=== PATIENT | female | born 1985 | race African-American/Black ===

== ENCOUNTER 2016-10-24 22:32 | Emergency (ER) | payer MEDICAID ==
[2016-10-25] MEDS ORDERED: LIDOCAINE 1%/EPINEPHRINE INJ 20 ML VIAL INJ ONE (01:30)
--- NOTE | 2016-10-25 02:12 | ER Document Report ---
ED General - General Chief Complaint: Facial Injury Stated Complaint: FALL/FACIAL INJURY Notes: Patient is a 31-year-old female without past medical history who presents after having a mechanical fall just prior to arrival. States that she tripped and fell striking her face and forehead on the ground. She did sustain a laceration over her left lip. A constant, throbbing, dull pain to the affected area. Touching the area worsens the pain. Nothing improves the pain. Denies history of similar injury in the past. States her tetanus is already up-to- date. Denies any weakness, numbness, loss of consciousness, vomiting, or altered mental status. She has not seen her primary care physician regarding today's concerns. TRAVEL OUTSIDE OF THE [place] IN LAST 30 DAYS: No - Related Data Allergies/Adverse Reactions: No Known Allergies Allergy (Verified 05/04/14 00:54) Past Medical History - General Information source: Patient - Social History Smoking Status: Current Every Day Smoker Chew tobacco use (# tins/day): No Frequency of alcohol use: None Drug Abuse: None Lives with: Spouse/Significant other Family History: CAD, DM, Hypertension Patient has suicidal ideation: No Patient has homicidal ideation: No Pulmonary Medical History: Reports: Hx Asthma Renal/ Medical History: Denies: Hx Peritoneal Dialysis Past Surgical History: Reports: Hx Section - Immunizations Immunizations up to date: Yes Hx Diphtheria, Pertussis, Tetanus Vaccination: Yes Hx Pneumococcal Vaccination: 05/07/14 Review of Systems - Review of Systems Notes: Constitutional: Negative for fever. Eyes: Negative for visual changes. ENT: Positive for facial injury Cardiovascular: Negative for chest injury. Respiratory: Negative for shortness of breath. Gastrointestinal: Negative for abdominal injury. Genitourinary: Negative for genital injury Musculoskeletal: Negative for back injury. Skin: Negative for laceration/abrasions. Neurological: Positive for head injury. Physical Exam - Vital signs Vitals: Temp Pulse Resp BP Pulse Ox 98 F 82 18 138/94 H 99 10/24/16 22:42 10/24/16 22:42 10/24/16 22:42 10/24/16 22:42 10/24/16 22:42 Interpretation: Normal Notes: PHYSICAL EXAMINATION: GENERAL: Well-appearing, no acute distress. HEAD: Atraumatic, normocephalic. EYES: Pupils equal round and reactive to light, extraocular movements intact, sclera anicteric, conjunctiva are normal. ENT: nares patent, contused, macerated flap type laceration of the left upper lip No hemotympanum, no Song's sign, no raccoon eyes. NECK: No midline cervical spine tenderness. Patient able to move their head to 45 bilaterally without any discomfort. LUNGS: Breath sounds clear to auscultation bilaterally and equal. No wheezes rales or rhonchi. HEART: Regular rate and rhythm without murmurs. CHEST WALL: No ecchymosis over the chest wall. ABDOMEN: Soft, nontender, normoactive bowel sounds. No guarding, no rebound. EXTREMITIES: Normal range of motion, no pitting or edema. No long bone deformities. NEUROLOGICAL: Moves all extremities spontaneously and on command PSYCH: Normal mood, normal affect. SKIN: Warm, Dry, normal turgor, lip laceration as above Course - Re-evaluation Re-evalutation: 10/25/16 03:51 Patient presents with a left upper lip laceration sustained after a mechanical fall. No focal neurologic deficits on exam, no evidence of basilar skull fracture on exam without evidence of hemotympanum, raccoon eyes, or periauricular hematoma. No papilledema. Patient is not on anticoagulation. GCS is 15. No loss of consciousness. No episodes of vomiting. Patient is therefore negative via [place] head CT criteria and CT imaging will not be obtained at this time. Laceration repaired at the bedside. No evidence of dental injury. At this time will discharge with return precautions and follow- up recommendations. Verbal discharge instructions given a the bedside and opportunity for questions given. Medication warnings reviewed. Patient is in agreement with this plan and has verbalized understanding of return precautions and the need for primary care follow-up in the next 24-72 hours. - Vital Signs Vital signs: Temp Pulse Resp BP Pulse Ox 98 F 71 18 133/79 H 100 10/24/16 22:42 10/25/16 02:22 10/25/16 02:22 10/25/16 02:22 10/25/16 02:22 Procedures - Laceration/Wound Repair Face Wound length (cm): 2 Wound's Depth, Shape: Irregular, Contused tissue Laceration pre-procedure: Sterile PPE donned Anesthetic type: 1% Lidocaine w/epi Volume Anesthetic (mLs): 1 Wound explored: Clean Irrigated w/ Saline (mLs): 200 Wound Debrided: Moderate Wound Repaired With: Sutures Suture Size/Type: 5:0, Nylon Number of Sutures: 7 Layer Closure?: No Post-procedure wound care: Sterile dressing applied Post-procedure NV exam normal: Yes Complications: No Notes: 10/25/16 03:51 Complex lip laceration repair requiring approximation of contused, irregular laceration tissue. Total procedure time 30 minutes Discharge - Discharge Clinical Impression: Lip laceration Qualifiers: Encounter type: initial encounter Qualified Code(s): S01.511A - Laceration without foreign body of lip, initial encounter Head trauma Qualifiers: Encounter type: initial encounter Qualified Code(s): S09.90XA - Unspecified injury of head, initial encounter Condition: Good Disposition: HOME, SELF-CARE Additional Instructions: Please return to your primary doctor, the ED, or an urgent care in 5-7 days for suture removal. Return immediately if you develop spreading redness around the wound, pus from the wound, worsening pain, or a fever of >100.4. Keep the area clean and dry. Wash gently with soap and water twice daily and cover with antibiotic ointment. Referrals: CHRISTOPHER AMIN MD [Primary Care Provider] - Follow up as needed
[2016-10-25 02:41] VITALS: BP 133/79
== END 2016-10-25 02:22 | disposition home or self-care (01) ==
LOC: ER 22:32
PROC: 0CQ0XZZ Repair Upper Lip, External Approach (ICD-10-PCS; principal; 2016-10-24)
DX: S01.511A Laceration without foreign body of lip, initial encounter (principal); W19.XXXA Unspecified fall, initial encounter; Y93.01 Activity, walking, marching and hiking; Y92.480 Sidewalk as the place of occurrence of the external cause; F17.200 Nicotine dependence, unspecified, uncomplicated; J45.909 Unspecified asthma, uncomplicated
CPT/HCPCS: 12011; 99282; J3490

== ENCOUNTER → 2017-01-23 | Outpatient (CLI) | payer MEDICAID | LOC: WI 13:52 | PROVIDERS: ATTEND Obstetrics & Gynecology | DX: N63 Unspecified lump in breast (principal) | CPT/HCPCS: 76641 ==

== ENCOUNTER 2017-06-13 06:31 | Outpatient (CLI) | payer MEDICAID ==
[2017-06-13 07:59] LABS: APPEARANCE,URINE CLOUDY; BILIRUBIN,URINE NEGATIVE (NEGATIVE); GLUCOSE, URINE NEGATIVE (NEGATIVE); KETONES,URINE NEGATIVE (NEGATIVE); LEUKOCYTE ESTERASE,URINE SMALL (NEGATIVE); NITRITE,URINE NEGATIVE (NEGATIVE); PROTEIN,URINE 30 mg/dL (NEGATIVE); URINE SPECIFIC GRAVITY 1.014; UROBILINOGEN,URINE NEGATIVE mg/dL (<2.0)
[2017-06-13 08:36] LABS: URINE BARBITURATES SCREEN NEGATIVE; URINE METHADONE SCREEN NEGATIVE; URINE OPIATES LOW NEGATIVE; URINE PHENCYCLIDINE SCREEN NEGATIVE
--- NOTE | 2017-06-13 08:36 | Non Stress Test Report ---
Non Stress Test Datetime Report Generated by CPN: 06/13/2017 08:36 DEMOGRAPHIC Test Number: 1 EGA NST: 38.1 INDICATION Indication for Study: Ordered by Provider MONITORING Monitor Explained: Monitor Explained; Test Explained; Patient Verbalized Understanding Time on Monitor: 06/13/2017 06:47 Time off Monitor: 06/13/2017 08:18 NST Duration: 91 NST INTERVENTIONS NST Interventions: PO Hydration; IV Fluids Physician Notified NST: LANIER BABY A: [id number] BABY A Movement : Present Contraction Frequency : 14 FHR Baseline : 140 Accelerations : 15X15 Variability : Moderate 6-25bpm NST Review: Meets Criteria for Reactive NST NST Review and Verified By : Elissa Fonsecaolamo NST Results: Reactive NST COMMENTS NST Comments: One area of deceleration of heart rate to 100 x90 secconds with spont return to baseline and reactive strip thereafter NST REPORT Report Trigger: Send Report
== END 2017-06-13 08:37 | disposition home or self-care (01) ==
LOC: LC 06:31
PROVIDERS: ATTEND Specialist
PROC: 4A1HXCZ Monitoring of Products of Conception, Cardiac Rate, External Approach (ICD-10-PCS; principal; 2017-06-13)
DX: O76 Abnormality in fetal heart rate and rhythm complicating labor and delivery (principal); O47.1 False labor at or after 37 completed weeks of gestation; Z3A.38 38 weeks gestation of pregnancy
CPT/HCPCS: 59025; 80307; 81005

== ENCOUNTER 2017-06-17 12:58 | Inpatient (IN) | payer MEDICAID ==
[2017-06-17 12:35] LABS: ABSOLUTE LYMPHOCYTES (AUTO) 2.7 10^3/uL (0.5-4.7); ABSOLUTE MONOCYTES (AUTO) 0.5 10^3/uL (0.1-1.4); ABSOLUTE NEUT (AUTO) 5.4 10^3/uL (1.7-8.2); BASOPHILS % (AUTO) 0.2 % (0-2); EOSINOPHILS % (AUTO) 0.3 % (0-6); LYMPHOCYTES % (AUTO) 30.8 % (13-45); MEAN CORPUSCULAR HEMOGLOBIN 31.6 pg (27.0-33.4); MEAN CORPUSCULAR HGB CONC 33.4 g/dL (32.0-36.0); MEAN CORPUSCULAR VOLUME 95 fl (80-97); MONOCYTES % (AUTO) 5.8 % (3-13); RED CELL DISTRIBUTION WIDTH 14.7 % (11.5-14.0); SEGMENTED NEUTROPHILS % (AUTO) 62.9 % (42-78); WHITE BLOOD COUNT 8.6 10^3/uL (4.0-10.5)
[2017-06-17 12:50] LABS: APPEARANCE,URINE SLIGHTLY-CLOUDY; BILIRUBIN,URINE NEGATIVE (NEGATIVE); GLUCOSE, URINE NEGATIVE (NEGATIVE); KETONES,URINE NEGATIVE (NEGATIVE); LEUKOCYTE ESTERASE,URINE NEGATIVE (NEGATIVE); NITRITE,URINE NEGATIVE (NEGATIVE); PROTEIN,URINE NEGATIVE (NEGATIVE); URINE SPECIFIC GRAVITY 1.017; UROBILINOGEN,URINE NEGATIVE mg/dL (<2.0)
[2017-06-17 13:08] LABS: URINE BARBITURATES SCREEN NEGATIVE; URINE METHADONE SCREEN NEGATIVE; URINE OPIATES LOW NEGATIVE; URINE PHENCYCLIDINE SCREEN NEGATIVE
[2017-06-17 13:50] LABS: ABSOLUTE LYMPHOCYTES (AUTO) 2.2 10^3/uL (0.5-4.7); ABSOLUTE MONOCYTES (AUTO) 0.4 10^3/uL (0.1-1.4); ABSOLUTE NEUT (AUTO) 5.6 10^3/uL (1.7-8.2); BASOPHILS % (AUTO) 0.6 % (0-2); EOSINOPHILS % (AUTO) 0.3 % (0-6); HEMATOCRIT 32.6 % (36.0-47.0); HEMOGLOBIN 10.6 g/dL (12.0-15.5); HGB HCT DIFFERENCE -0.8; MEAN CORPUSCULAR HEMOGLOBIN 31.1 pg (27.0-33.4); MEAN CORPUSCULAR HGB CONC 32.7 g/dL (32.0-36.0); MEAN CORPUSCULAR VOLUME 95 fl (80-97); MONOCYTES % (AUTO) 4.3 % (3-13); RED BLOOD COUNT 3.43 10^6/uL (3.72-5.28); RED CELL DISTRIBUTION WIDTH 15.1 % (11.5-14.0); SEGMENTED NEUTROPHILS % (AUTO) 67.8 % (42-78); WHITE BLOOD COUNT 8.3 10^3/uL (4.0-10.5)
[2017-06-17 14:07] LABS: APPEARANCE,URINE CLOUDY; BILIRUBIN,URINE NEGATIVE (NEGATIVE); GLUCOSE, URINE >=500 mg/dL (NEGATIVE); KETONES,URINE TRACE mg/dL (NEGATIVE); LEUKOCYTE ESTERASE,URINE NEGATIVE (NEGATIVE); NITRITE,URINE NEGATIVE (NEGATIVE); PROTEIN,URINE NEGATIVE (NEGATIVE); URINE SPECIFIC GRAVITY 1.024; UROBILINOGEN,URINE NEGATIVE mg/dL (<2.0)
[2017-06-17 14:17] LABS: ALANINE AMINOTRANSFERASE 12 U/L (9-52); ALBUMIN 3.6 g/dL (3.5-5.0); ALKALINE PHOSPHATASE 200 U/L (38-126); ANION GAP 11 (5-19); ASPARTATE AMINO TRANSFERASE 16 U/L (14-36); BILIRUBIN,DIRECT 0.3 mg/dL (0.0-0.4); BILIRUBIN,TOTAL 0.3 mg/dL (0.2-1.3); BLOOD UREA NITROGEN 8 mg/dL (7-20); CALCIUM 9.3 mg/dL (8.4-10.2); CARBON DIOXIDE 19 mmol/L (22-30); CHLORIDE 105 mmol/L (98-107); CREATININE RESULT 0.51 mg/dL (0.52-1.25); GLUCOSE 205 mg/dL (75-110); LDH 288 U/L (313-618); POTASSIUM 3.8 mmol/L (3.6-5.0); TOTAL PROTEIN 6.3 g/dL (6.3-8.2)
[2017-06-17 14:29] LABS: URINE BARBITURATES SCREEN NEGATIVE; URINE METHADONE SCREEN NEGATIVE; URINE OPIATES LOW NEGATIVE; URINE PHENCYCLIDINE SCREEN NEGATIVE
[2017-06-17 15:25] LABS: URINE CREATININE 105.4 mg/dL (16-327); URINE PROTEIN 7.5 mg/dL (<12)
[2017-06-17] MEDS: GLYBURIDE 2.5 MG TABLET PO SCH (18:36)
[2017-06-17 18:48] LABS: CHLAM PCR NOT DETECTED (NOT DETECT)
[2017-06-18] MEDS: GLYBURIDE 2.5 MG TABLET PO SCH ×2 (09:51→17:10)
[2017-06-19] MEDS ORDERED: LIDOCAINE 0.5% INJ-PF (5 MG/ML) 50 ML SDV SUBCUT PRN (05:00)
[2017-06-19] MEDS ORDERED: CEFAZOLIN 2 GM/D5W RTU 2 GM/50 ML RTUPB IV PRN (05:00)
[2017-06-19] MEDS ORDERED: RINGERS SOLUTION,LACTATED 1,500 ML IV PRN (05:00)
[2017-06-19] MEDS ORDERED: LACTATED RINGERS 1000 ML IV PRN (05:00)
[2017-06-19] MEDS ORDERED: OXYTOCIN 10 UNIT/ML VIAL ONE (06:48)
[2017-06-19] MEDS ORDERED: FENTANYL CITRATE INJ/PF 100 MCG/2 ML AMPUL ONE (06:49)
[2017-06-19] MEDS ORDERED: CITRIC ACID/SODIUM CITRATE ORAL SOLN 15 ML UDCUP ONE (06:49)
[2017-06-19] MEDS ORDERED: MIDAZOLAM 2 MG/2 ML INJ ONE (06:49)
[2017-06-19] MEDS ORDERED: ONDANSETRON HCL INJ/PF 4 MG/2 ML SDV ONE (06:49)
[2017-06-19] MEDS ORDERED: OXYTOCIN/NORMAL SALINE 20 UNIT/1,000 ML RTUINJ ONE (06:49)
[2017-06-19] MEDS ORDERED: ACETAMINOPHEN 100 ML IV ONE (06:49)
[2017-06-19] MEDS ORDERED: MORPHINE SULFATE 10 MG/ML INJ IV PRN (08:24)
[2017-06-19] MEDS ORDERED: DIPHENHYDRAMINE HCL 50 MG/ML VIAL IV PRN (08:24)
[2017-06-19] MEDS ORDERED: PROMETHAZINE HCL INJ 25 MG/1 ML VIAL IV PRN ×2 (08:24→09:53)
[2017-06-19] MEDS ORDERED: FENTANYL CITRATE INJ/PF 100 MCG/2 ML AMPUL IV PRN ×2 (08:24)
--- NOTE | 2017-06-19 09:34 | Non Stress Test Report ---
Non Stress Test Datetime Report Generated by CPN: 06/19/2017 09:34 DEMOGRAPHIC EGA NST: 38.5 INDICATION Indication for Study: Ordered by Provider Indication for Study (NST) Other: PIH sent from office VITAL SIGNS Temperature - NST: 98.4 Pulse - NST: 97 RESP - NST: 16 NBPSYS NST: 124 NBPDIA NST: 65 MONITORING Monitor Explained: Monitor Explained; Test Explained; Patient Verbalized Understanding Time on Monitor: 06/17/2017 13:47 Time off Monitor: 06/17/2017 15:14 NST Duration: 87 NST INTERVENTIONS NST Interventions: PO Hydration; Reposition Patient Physician Notified NST: C Dave CNM BABY A: [id number] BABY A Movement : Present Contraction Frequency : 0 FHR Baseline : 140 Accelerations : 15X15 Decelerations : None Variability : Moderate 6-25bpm NST Review: Meets Criteria for Reactive NST NST Review and Verified By : Jamil Santacruz RN NST Results: Reactive NST REPORT Report Trigger: Send Report
--- NOTE | 2017-06-19 09:49 | Brief Operative Note ---
BRIEF OPERATIVE REPORT DATE OF SURGERY: 06/19/17 TIME OF SURGERY: 09:30 PREOPERATIVE DIAGNOSIS: History of C/S, , 39+0ega, Possible GDM (passed 1 hr but elev HbA1c), Undesired Fertility POSTOPERATIVE DIAGNOSIS: RASHID - delivered, Pelvic Adhesive disease SURGEON: Derek FINDINGS: VFI, Apgars 6/8, weight 7#10oz, normal uterus, normal bilateral ovaries, right fallopian tube scarred to right ovary, entire front of the uterus scarred to abdominal wall, UOP 200ml, EBL 600ml, IVF 1500ml, Bilateral tubes occluded times two, dermabond tape placed for wound closure, Interseed placed over uterus incision and front of uterus to prevent scarring COMPLICATIONS: pelvic adhesive disease ESTIMATED BLOOD LOSS: 600ml TISSUE REMOVED OR ALTERED: placenta and cord - not sent to pathology TECHNICAL PROCEDURE: Repeat C/S with BTL with Filschie
--- NOTE | 2017-06-19 09:52 | PDOC DELIVERY SUMMARY ---
Delivery Summary - Maternal Hx : III Hx Para: I Hx # Term Pregnancies: 1 Hx # Pregnancies: 0 Hx Total # of Abortions (Sponateous & Elective): 1 SANDI: 06/26/17 Gestational Age: 39+0 Risk Factors: Previous , Gestational Diabetes Ruptured Membranes: AROM Time of Rupture: 08:25 Fluids: Clear - Delivery Labor: Not In Labor Presentation: Vertex Heart Rate Monitoring: Done Pre-Operatively Uterine Contraction Monitoring: External Support Person Present: Yes - MOTHER, BOGDAN SMALL Location: OR : Scheduled Placenta: Within Normal Limits Nuchal Cord: No - right shoulder and left leg Delivery of Placenta Date: 06/19/17 Delivery of Placenta Time: 08:28 - Medications Type of Anesthesia:: Spinal - Intrapartum Medications Intrapartum Medications: pitocin - Infant Assess and Care Baby 1 Female Delivery of Infant Date: 06/19/17 Delivery of Infant Time: 08:27 at 1 minute: 6 at 5 minutes: 8 Preprinted Number On Band: [id number] Infant Skin to Skin: No To Nursery At: 08:38 Mode of Transport: Bassinet Infant Delivery Weight: 3460 kg Delivery Length: 21 in - Delivery Personnel Property Management Specialist: SHON METCALF Nursery RN: RADHA GUY RN: JEANETTE TOPETE RN: JARRETT LE MD: MICKIE RIVERA
[2017-06-19] MEDS ORDERED: ACETAMINOPHEN 325 MG TABLET PO PRN (09:53)
[2017-06-19] MEDS ORDERED: OXYCODONE-ACETAMINOPHEN 5-325 MG TABLET PO PRN (09:53)
[2017-06-19] MEDS ORDERED: SIMETHICONE 80 MG TAB.CHEW PO PRN (09:53)
[2017-06-19] MEDS ORDERED: DIPH/PERTUSS(ACELL)/TETANUS VAC/PF 0.5 ML SYR (>=10YO) IM PRN (09:53)
[2017-06-19] MEDS ORDERED: OXYTOCIN/NORMAL SALINE 20 UNIT/1,000 ML RTUINJ IV PRN (09:53)
[2017-06-19] MEDS ORDERED: MEASLES,MUMPS&RUBELLA VACC/PF 0.5 ML VIAL SUBCUT PRN (09:53)
[2017-06-19] MEDS ORDERED: ACETAMINOPHEN 100 ML IV PRN (09:56)
[2017-06-19] MEDS: HYDROMORPHONE HCL INJ/PF 2 MG/ML AMPULE IV PRN ×2 (10:51→16:08)
[2017-06-19] MEDS ORDERED: HYDROMORPHONE HCL INJ/PF 2 MG/ML AMPULE ONE (10:54)
[2017-06-19] MEDS: OXYCODONE-ACETAMINOPHEN 5-325 MG TABLET PO PRN ×2 (12:30→20:35)
[2017-06-19] MEDS: DOCUSATE SODIUM 100 MG CAPSULE PO SCH ×2 (12:59→18:05)
[2017-06-19] MEDS: GLYBURIDE 2.5 MG TABLET PO SCH ×2 (12:59→18:06)
[2017-06-19] MEDS: PRENATAL VITAMIN W-O CA NO5/FE FUMARATE/FA CAPSULE PO SCH (12:59)
--- NOTE | 2017-06-19 13:32 | Admission Physical ---
Datetime Report Generated by CPN: 06/19/2017 13:32 CURRENT ADMISSION Hx Assessment: The History has been Reviewed and is Current Chief Complaint Other: Pt sent from clinic for elevated bp but found to have random sugar of 200 and Hgba1c of 6 ALLERGIES Medication Allergies: No Medication Allergies: No Known Allergies (06/17/2017) Medication Allergies: No Known Allergies (06/13/2017) Medication Allergies: No Known Allergies (05/04/2014) Latex: No Latex Allergies Food Allergies: N/A Environmental Allergies: N/A OBSTETRICAL HISTORY EDC: 06/26/2017 00:00 : 3 Para: 1 Ectopic: 0 Cesareans: 1 VBACs: 0 Multiple Births: 0 Gestational Diabetes: Yes Rh Sensitization: No Incompetent Cervix: No RAFFI: No Infertility: No ART Treatment: No Uterine Anomaly: No IUGR: No Hx Previous C/S: Yes Macrosomia: No Hx Loss/Stillborn: No PIH: No Hx : No Placenta Previa/Abruption: No Depression/PP Depression: No PTL/PROM: No Post Hemorrhage: No Current Procedures: Ultrasound; NST Obstetrical History Comments: G1- G2-2013, C/S, Boy G3-Current SEE RECORDS Alcohol: No Marijuana : No Cocaine: No Other Illicit Drugs: No Cigarettes: Current Everyday Smoker. 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 Surgery: No Heart Disease: No Hosp/Surgery: Yes Autoimmune Disorder: No Anesthetic Complications: No Kidney Disease: No Abnormal Pap Smear: No Neuro/Epilepsy: No Psychiatric Disorders: No Other Medical Diseases: No Hepatitis/Liver Disease: No Significant Family History: No Varicosities/Phlebitis: No Trauma/Violence : No Thyroid Dysfunction: No Medical History Comments: Asthma INFECTIOUS HISTORY Gonorrhea: No Genital Herpes: No Chlamydia: No Tuberculosis: No Syphilis: No Hepatitis: No HIV/AIDS Exposure: No Rash or Viral Illness: No HPV: No PHYSICAL EXAM General: Normal HEENT: Normal Neurologic: Normal Thyroid: Normal Heart: Normal Lungs: Normal Breast: Normal Back: Normal Abdomen: Normal Genitourinary Exam: Normal Extremities: Normal DTRs: Normal Pelvic Type: Adequate FETUS A Monitoring: External US FHR Category: Category I Admit Comment: Pt with undiagnosed GDM at 38.5 wks scheduled for repeat in 2 days. Will admit for glycemic control. PLANS FOR LABOR AND DELIVERY Labor and Delivery: None Pain Management: Spinal Feeding Preference: Both Benefit of Breast Feed Discussed: Yes Circumcision: N/A INFORMED CONSENT Signature: with User ID: [email or web address]
[2017-06-19] MEDS: KETOROLAC TROMETHAMINE INJ/PF 30 MG/1 ML SDV IV SCH ×2 (14:19→21:57)
[2017-06-20] MEDS: OXYCODONE-ACETAMINOPHEN 5-325 MG TABLET PO PRN ×4 (01:47→21:15)
[2017-06-20 06:33] LABS: HEMATOCRIT 32.6 % (36.0-47.0); HEMOGLOBIN 11.3 g/dL (12.0-15.5); HGB HCT DIFFERENCE 1.3; MEAN CORPUSCULAR HEMOGLOBIN 32.1 pg (27.0-33.4); MEAN CORPUSCULAR HGB CONC 34.8 g/dL (32.0-36.0); MEAN CORPUSCULAR VOLUME 93 fl (80-97); RED BLOOD COUNT 3.52 10^6/uL (3.72-5.28); RED CELL DISTRIBUTION WIDTH 14.8 % (11.5-14.0); WHITE BLOOD COUNT 9.5 10^3/uL (4.0-10.5)
[2017-06-20] MEDS: IBUPROFEN 800 MG TABLET PO SCH ×4 (06:34→23:24)
[2017-06-20] MEDS: DOCUSATE SODIUM 100 MG CAPSULE PO SCH ×2 (09:13→19:05)
[2017-06-20] MEDS: PRENATAL VITAMIN W-O CA NO5/FE FUMARATE/FA CAPSULE PO SCH (09:13)
--- NOTE | 2017-06-20 09:53 | Operative Report ---
Operative Report DATE OF SURGERY: 06/19/17 PREOPERATIVE DIAGNOSIS: History of C/S, , 39+0ega, Possible GDM (passed 1 hr but elev HbA1c), Undesired Fertility POSTOPERATIVE DIAGNOSIS: RASHID - delivered, Pelvic Adhesive disease OPERATION: Repeat C/S with BTL with John SURGEON: Derek ANESTHESIA: Spinal TISSUE REMOVED OR ALTERED: placenta and cord - not sent to pathology COMPLICATIONS: None ESTIMATED BLOOD LOSS: 600ml INTRAOPERATIVE FINDINGS: VFI, Apgars 6/8, weight 7#10oz, normal uterus, normal bilateral ovaries, right fallopian tube scarred to right ovary, entire front of the uterus scarred to abdominal wall, UOP 200ml, EBL 600ml, IVF 1500ml, Bilateral tubes occluded times two, dermabond tape placed for wound closure, Interseed placed over uterus incision and front of uterus to prevent scarring, right shoulder and left leg cord PROCEDURE: Anesthesia provider: [Chandana BOWEN, Frankie Morgan CRNA] Urine output: [200ml of clear urine at the conclusion of the procedure] IV fluids: [1500ml] Indications: [32yo at 39+0ega with history of C/S x 1, possible GDM ( passed 1 hr but elev HbA1c) versus Type II DM and Undesired Fertility. The risks benefits and alternatives were reviewed and she desires to proceed with scheduled Repeat C/S with BTL.] Procedure: The patient was taken to the operating room where spinal anesthesia was obtained and found to be adequate. She was then prepped and draped in the normal sterile fashion and placed in the dorsal supine position with a leftward tilt. A Pfannenstiel skin incision was then made and carried through to the underlying layers of the fascia with the scalpel. The fascia was incised in the midline and the incision extended laterally with the Campos scissors. The superior aspect of the fascial incision was then grasped with [place] clamps elevated and the underlying rectus muscles dissected off [bluntly]. Attention was then turned to the inferior aspect of the fascial incision which in a similar fashion was grasped, tented up with Comfort clamps, and the rectus muscles dissected off [sharply due to adhesive disease]. The rectus muscles were then in the midline and the peritoneum at the amount identified and entered [sharply due to anterior abdominal wall adhesions to the anterior body of the uterus]. The peritoneal incision was then extended superiorly and inferiorly with good visualization of the bladder. The bladder blade was inserted and the vesicouterine peritoneum identified grasped with Vietnamese pickups and entered sharply with the Metzenbaum scissors. This incision was then extended laterally with the Metzenbaum scissors and a bladder flap created digitally. The bladder blade was then reinserted and the lower uterine segment incised in a transverse fashion with the scalpel. The uterine incision was then extended bluntly. The bladder blade was removed and the infant's head was delivered from cephalic presentation atraumatically. The nose and mouth were suctioned and the cord doubly clamped and cut. And the was handed off to waiting pediatricians. The placenta was then delivered spontaneously and the uterus exteriorized and cleared of all clots and debris. The uterine incision was then repaired with 1- 0 Vicryl in a running locked fashion. A second layer of the same suture was used to obtain hemostasis via imbrication of the initial layer. The bladder flap was then repaired with 3-0 chromic in a running fashion. The right fallopian tube was followed out to the fimbriated end and filschie clip placed times two in the ampullary portion of the fallopian tube. This procedure was repeated on the patient's left fallopian tube. The uterus was returned to the patient's abdomen and Interceed was placed overlying the uterine incision to prevent adhesions. The gutters were cleared of all clots and debris. All operative sites were noted to be hemostatic. The fascia was reapproximated with 0 Vicryl in a running fashion from each lateral edge to the midline. The skin was closed with 3-0 Monocryl in a running subcuticular fashion with overlying Dermabond tape for additional dressing as well as wound closure. The patient tolerated the procedure well. Sponge lap needle and instrument counts are correct times 2. 2 g of Ancef were given prior to skin incision. The patient was taken to the recovery area awake and in stable condition.
--- NOTE | 2017-06-20 10:58 | PDOC PROGRESS REPORT ---
Subjective Progress Note for:: 06/20/17 Subjective:: pt doing well. minimal lochia. incision is clean/dry/intact with no s/sxs of infection/breakdown. Physical Exam - Physical Exam Vital Signs: Temp Pulse Resp BP Pulse Ox 98.3 F 77 17 128/75 H 100 06/20/17 08:00 06/20/17 08:00 06/20/17 08:00 06/20/17 08:00 06/20/17 08:00 Intake & Output 06/19/17 06/20/17 06/21/17 06:59 06:59 06:59 Intake Total 1000 1575 Output Total 1650 Balance 1000 -75 Weight 110.223 kg - Obstetrical Exam Fundal Height: u/u - u/2 Tender: No Result Laboratory Results: 06/20/17 06:19 06/17/17 13:36 06/20/17 06:19 WBC 9.5 RBC 3.52 L Hgb 11.3 L Hct 32.6 L MCV 93 MCH 32.1 MCHC 34.8 RDW 14.8 H Plt Count 259 Assessment & Plan - Diagnosis (1) delivery delivered Is this a current diagnosis for this admission?: Yes - Time Time Spent with patient: Less than 15 minutes - Plan Summary Plan Summary: plan for discharge home in AM
[2017-06-20] MEDS: GLYBURIDE 2.5 MG TABLET PO SCH ×2 (11:28→19:07)
[2017-06-21] MEDS: OXYCODONE-ACETAMINOPHEN 5-325 MG TABLET PO PRN ×3 (03:51→13:11)
[2017-06-21] MEDS: IBUPROFEN 800 MG TABLET PO SCH ×2 (05:28→11:36)
--- NOTE | 2017-06-21 09:41 | PDOC DISCHARGE SUMMARY ---
Final Diagnosis Discharge Date: 06/21/17 - Final Diagnosis (1) delivery delivered Is this a current diagnosis for this admission?: Yes Discharge Data - Discharge Medication Home Medications: Prenat 115/Iron Fum/Folic/Dss [ 19 Tablet] 1 tab PO DAILY 04/21/14 Albuterol Sulfate [Albuterol Sulfate 2.5mg/3 mL] 1 vial IH Q4 PRN 06/17/17 Albuterol Sulfate [Proair HFA] 1 - 2 puff IH Q4 PRN 06/17/17 Reason(s) for Admission: Ceasarean Section-Repeat Procedures: None Intrapartum Procedure(s): : Low Cervical, Transverse - Diagnosis Test Laboratory: Temp Pulse Resp BP Pulse Ox 98.5 F 68 18 131/79 H 100 06/21/17 08:11 06/21/17 08:11 06/21/17 08:11 06/21/17 08:11 06/21/17 08:11 06/17/17 06/17/17 06/17/17 11:40 11:45 13:10 RBC 3.50 L Hgb 11.0 L Hct 33.0 L Urine Opiates Screen NEGATIVE NEGATIVE 06/17/17 06/20/17 13:36 06:19 RBC 3.43 L 3.52 L Hgb 10.6 L 11.3 L Hct 32.6 L 32.6 L Urine Opiates Screen - Discharge information/Instructions Discharge Activity: Balance Activity w/Rest, No Lifting Over 10 Pounds, No Lifting/Push/Pulling, Pelvic Rest, No tub bath Discharge Diet: Regular Disposition: HOME, SELF-CARE Follow up with: [facility] in: 5, Days
[2017-06-21] MEDS: PRENATAL VITAMIN W-O CA NO5/FE FUMARATE/FA CAPSULE PO SCH (09:54)
[2017-06-21] MEDS: DOCUSATE SODIUM 100 MG CAPSULE PO SCH (09:54)
[2017-06-21] MEDS: GLYBURIDE 2.5 MG TABLET PO SCH (09:56)
[2017-06-21 11:59] VITALS: BP 127/68
== END 2017-06-21 15:25 | disposition home or self-care (01) | DRG 765 ==
LOC: LC 12:58 → LR 15:25 → 2S 16:20
PROVIDERS: ADMIT Specialist; ATTEND Specialist
PROC: 0UL70CZ Occlusion of Bilateral Fallopian Tubes with Extraluminal Device, Open Approach (ICD-10-PCS; 2017-06-19)
PROC: 10D00Z1 Extraction of Products of Conception, Low, Open Approach (ICD-10-PCS; principal; 2017-06-19 07:45)
DX: O34.211 Maternal care for low transverse scar from previous cesarean delivery (principal); Z68.41 Body mass index [BMI] 40.0-44.9, adult; N85.8 Other specified noninflammatory disorders of uterus; O24.429 Gestational diabetes mellitus in childbirth, unspecified control; O69.2XX0 Labor and delivery complicated by other cord entanglement, with compression, not applicable or unspecified; O99.334 Smoking (tobacco) complicating childbirth; F17.210 Nicotine dependence, cigarettes, uncomplicated; O99.214 Obesity complicating childbirth; E66.9 Obesity, unspecified; Z3A.39 39 weeks gestation of pregnancy; Z37.0 Single live birth; Z30.2 Encounter for sterilization
CPT/HCPCS: 1961; 36415; 59025; 80053; 80307; 81001; 82570; 82962; 83036; 83615; 84156; 84550; 85025; 85027; 86850; 86900; 86901; 87491; 87591; 94799; C1765; J0131; J0690; J1170; J1885; J2250; J2405; J2590; J3010; J3490; J7120

== ENCOUNTER 2018-01-19 12:44 | Emergency (ER) | payer MEDICAID ==
[2018-01-19 13:09] VITALS: BP 161/91
--- NOTE | 2018-01-19 13:25 | ER Document Report ---
ED Oral Problem - General Chief Complaint: Toothache Stated Complaint: TOOTH PAIN Time Seen by Provider: 01/19/18 13:17 Mode of Arrival: Ambulatory Information source: Patient, [facility] Records Notes: This 32-year-old female patient reports 2 week history of painful right upper tooth. She states she does have an appointment with a dentist 9 days from today on 01/28/2018. There is no fever. She states that there was a pus pocket above the tooth earlier. She took some leftover penicillin and amoxicillin for the past 2-3 days and has run out. TRAVEL OUTSIDE OF THE [place] IN LAST 30 DAYS: No - Related Data Allergies/Adverse Reactions: No Known Allergies Allergy (Verified 01/19/18 12:51) Past Medical History - General Information source: Patient, [facility] Records - Social History Smoking Status: Current Every Day Smoker Cigarette use (# per day): Yes - 1/4 PPD Chew tobacco use (# tins/day): No Smoking Education Provided: No Frequency of alcohol use: None Drug Abuse: None Occupation: Unemployed Lives with: Family Family History: CAD, DM, Hypertension - Past Medical History Cardiac Medical History: Reports: Hx Hypertension Pulmonary Medical History: Reports: Hx Asthma Past Surgical History: Reports: Hx Section, Hx Tubal Ligation - Immunizations Immunizations up to date: Yes Hx Diphtheria, Pertussis, Tetanus Vaccination: Yes Hx Pneumococcal Vaccination: 05/07/14 Review of Systems - Review of Systems Constitutional: No symptoms reported EENT: Dental problem Cardiovascular: No symptoms reported Respiratory: No symptoms reported Gastrointestinal: No symptoms reported Genitourinary: No symptoms reported Female Genitourinary: Last menstrual period - Sometime in December 2017, patient has had her tubes tied so she does not track her periods Musculoskeletal: No symptoms reported Skin: No symptoms reported Hematologic/Lymphatic: No symptoms reported Neurological/Psychological: No symptoms reported Physical Exam - Vital signs Vitals: Temp Pulse Resp BP Pulse Ox 97.9 F 79 16 161/91 H 97 01/19/18 13:07 01/19/18 13:07 01/19/18 13:07 01/19/18 13:07 01/19/18 13:07 - General General appearance: Appears well, Alert In distress: None - HEENT Head: Normocephalic, Atraumatic Eyes: Normal Pupils: PERRL Mouth/Lips: Other - The right upper first premolar is tender to percuss. There is no swelling of the gum on either side. There is no swelling to the face overlying the tooth. - Respiratory Respiratory status: No respiratory distress - Cardiovascular Rhythm: Regular - Abdominal Inspection: Obese Bowel sounds: Normal Tenderness: Nontender - Extremities General upper extremity: Normal inspection General lower extremity: Normal inspection - Neurological Neuro grossly intact: Yes - Psychological Associated symptoms: Normal affect, Normal mood - Skin Skin Temperature: Warm Skin Moisture: Dry Skin Color: Normal Course - Vital Signs Vital signs: Temp Pulse Resp BP Pulse Ox 97.9 F 79 16 161/91 H 97 01/19/18 13:07 01/19/18 13:07 01/19/18 13:07 01/19/18 13:07 01/19/18 13:07 Discharge - Discharge Clinical Impression: Dental infection Condition: Stable Disposition: HOME, SELF-CARE Additional Instructions: Toothache Your pain is due to dental decay. The tooth must be repaired in order for you to feel better. You will, therefore, be referred to a dentist. Severe swelling or drainage around a tooth usually means a deep dental abscess. This also requires evaluation and treatment by the dentist, but antibiotics may be prescribed while awaiting dental treatment. You should be rechecked immediately if you develop major swelling of the face, increasing pain, a lump in the jaw or gums, headache, or fever. Take medications as prescribed. Use warm soaks to the painful area. Follow-up with your dentist as scheduled next week. RETURN TO THE EMERGENCY ROOM IF ANY NEW OR WORSENING SYMPTOMS. Prescriptions: Clindamycin HCl 300 mg PO QID #28 capsule
[2018-01-19] MEDS ORDERED: CLINDAMYCIN HCL 150 MG CAPSULE PO ONE (13:44)
[2018-01-19] MEDS ORDERED: IBUPROFEN 800 MG TABLET PO ONE (13:45)
== END 2018-01-19 13:35 | disposition home or self-care (01) ==
LOC: ER 12:44
DX: K04.7 Periapical abscess without sinus (principal); K08.89 Other specified disorders of teeth and supporting structures; F17.210 Nicotine dependence, cigarettes, uncomplicated; I10 Essential (primary) hypertension; J45.909 Unspecified asthma, uncomplicated
CPT/HCPCS: 99282; J3490 ×2

== ENCOUNTER 2018-08-11 18:38 | Emergency (ER) | payer MEDICAID ==
--- NOTE | 2018-08-11 19:54 | ER Document Report ---
ED General - General Chief Complaint: Breast Problem Stated Complaint: BREAST PAIN Time Seen by Provider: 08/11/18 19:44 Mode of Arrival: Ambulatory Information source: Patient Notes: 33-year-old female presents emergency department complaints of pain to her right breast. Patient states that she has had a history of mastitis in the right breast. She states that her symptoms feel similar to previous. Breast is warm to touch per patient. Symptoms started a few days ago. No alleviating or exacerbating factors. TRAVEL OUTSIDE OF THE [place] IN LAST 30 DAYS: No - HPI Onset: Last week Onset/Duration: Gradual Quality of pain: Achy Severity: Mild Associated symptoms: None Exacerbated by: Denies Relieved by: Denies Similar symptoms previously: Yes Recently seen / treated by doctor: No - Related Data Allergies/Adverse Reactions: No Known Allergies Allergy (Verified 01/19/18 12:51) Past Medical History - General Information source: Patient - Social History Smoking Status: Former Smoker Family History: CAD, DM, Hypertension - Past Medical History Cardiac Medical History: Reports: Hx Hypertension Pulmonary Medical History: Reports: Hx Asthma Renal/ Medical History: Denies: Hx Peritoneal Dialysis Past Surgical History: Reports: Hx Section, Hx Tubal Ligation - Immunizations Immunizations up to date: Yes Hx Diphtheria, Pertussis, Tetanus Vaccination: Yes Hx Pneumococcal Vaccination: 05/07/14 Review of Systems - Review of Systems Constitutional: No symptoms reported EENT: No symptoms reported Cardiovascular: No symptoms reported Respiratory: No symptoms reported Gastrointestinal: No symptoms reported Genitourinary: No symptoms reported Female Genitourinary: No symptoms reported Musculoskeletal: No symptoms reported Skin: Rash Hematologic/Lymphatic: No symptoms reported Neurological/Psychological: No symptoms reported -: Yes All other systems reviewed and negative Physical Exam - Vital signs Vitals: Temp Pulse Resp BP Pulse Ox 98.5 F 87 18 163/95 H 99 08/11/18 19:00 08/11/18 19:00 08/11/18 19:00 08/11/18 19:00 08/11/18 19:00 - General Notes: PHYSICAL EXAMINATION: GENERAL: Well-appearing, well-nourished and in no acute distress. HEAD: Atraumatic, normocephalic. EYES: Pupils equal round and reactive to light, extraocular movements intact, conjunctiva are normal. ENT: Nares patent, oropharynx clear without exudates. Moist mucous membranes. NECK: Normal range of motion, supple without lymphadenopathy LUNGS: Breath sounds clear to auscultation bilaterally and equal. No wheezes rales or rhonchi. HEART: Regular rate and rhythm without murmurs Breast: R breast warmth, tenderness to palpation, and induration in the 11oclock /12 oclock position. No fluctuance appreciated. No nipple discharge. ABDOMEN: Soft, nontender, nondistended abdomen. No guarding, no rebound. No masses appreciated. Female : deferred Musculoskeletal: Normal range of motion, no pitting or edema. No cyanosis. NEUROLOGICAL: Cranial nerves grossly intact. Normal speech, normal gait. Normal sensory, motor exams PSYCH: Normal mood, normal affect. SKIN: Warm, Dry, normal turgor, no rashes or lesions noted. Course - Re-evaluation Re-evalutation: 08/11/18 20:00 breast has induration, warmth, and tenderness to the 11-12oclock position. No nipple drainage or fluctuance appreciated. I will start the patient on clindamycin. Patient instructed to take the medication as directed, to follow- up with the [employer] provided, and to return to the emergency department if she is having worsening symptoms, fever, chills. Patient is agreeable with plan of care. - Vital Signs Vital signs: Temp Pulse Resp BP Pulse Ox 98.5 F 87 18 163/95 H 99 08/11/18 19:00 08/11/18 19:00 08/11/18 19:00 08/11/18 19:00 08/11/18 19:00 Discharge - Discharge Clinical Impression: Abscess Condition: Good Disposition: HOME, SELF-CARE Instructions: Abscess ([facility]), Clindamycin ([facility]) Prescriptions: Clindamycin HCl 300 mg PO Q6 #28 capsule Referrals: CASSIA OJEDA MD [ACTIVE STAFF] - Follow up as needed MICKIE RIVERA MD [ACTIVE STAFF] - Follow up as needed
[2018-08-11 20:04] VITALS: BP 159/90
== END 2018-08-11 20:00 | disposition home or self-care (01) ==
LOC: ER 18:38
DX: N61.1 Abscess of the breast and nipple (principal); N64.4 Mastodynia; I10 Essential (primary) hypertension; J45.909 Unspecified asthma, uncomplicated
CPT/HCPCS: 99283

== ENCOUNTER 2018-08-23 17:38 | Emergency (ER) | payer MEDICAID ==
[2018-08-23] MEDS ORDERED: IBUPROFEN 800 MG TABLET PO ONE (18:56)
--- NOTE | 2018-08-23 19:00 | ER Document Report ---
HPI - HPI Patient complains to provider of: left knee pain Time Seen by Provider: 08/23/18 18:46 Pain Level: 4 Context: Patient is a 33-year-old female presenting to the emergency department complaining of left knee and ankle pain. Patient states she was trying to put up Crow lights when she inverted her left ankle and then fell directly onto her left knee. States she has pain in both. Patient states she was unable to bear weight on the left leg. Patient denies hitting her head, neck, back any loss of consciousness or numbness or tingling in any extremity.. Past medical history: None Medications: None Allergies: None - REPRODUCTIVE Reproductive: DENIES: : Past Medical History - General Information source: Patient - Social History Smoking Status: Unknown if Ever Smoked Lives with: Family Family History: CAD, DM, Hypertension - Past Medical History Cardiac Medical History: Reports: Hx Hypertension Pulmonary Medical History: Reports: Hx Asthma Renal/ Medical History: Denies: Hx Peritoneal Dialysis Past Surgical History: Reports: Hx Section, Hx Tubal Ligation - Immunizations Immunizations up to date: Yes Hx Diphtheria, Pertussis, Tetanus Vaccination: Yes Hx Pneumococcal Vaccination: 05/07/14 Vertical Provider Document - CONSTITUTIONAL Agree With Documented VS: Yes Notes: GENERAL: Obese alert, interacts well. No acute distress. HEAD: Normocephalic, atraumatic. EYES: Pupils equal, round, and reactive to light. Extraocular movements intact. ENT: Oral mucosa moist, tongue midline. NECK: Full range of motion. Supple. Trachea midline. LUNGS: Clear to auscultation bilaterally, no wheezes, rales, or rhonchi. No respiratory distress. HEART: Regular rate and rhythm. No murmur ABDOMEN: Soft, non-tender. Non-distended. Bowel sounds present in all 4 quadrants. EXTREMITIES: Moves all 4 extremities spontaneously. normal radial and dorsalis pedis pulses bilaterally. swelling noted left anterior knee, pain lateral malleolus left ankle. PMS present and equal distal left extremity. BACK: no cervical, thoracic, lumbar midline tenderness. No saddle anesthesia, normal distal neurovascular exam. NEUROLOGICAL: Alert and oriented x3. Normal speech. cranial nerves II through XII grossly intact. PSYCH: Normal affect, normal mood. SKIN: Warm, dry, normal turgor. No rashes or lesions noted. - INFECTION CONTROL TRAVEL OUTSIDE OF THE [place] IN LAST 30 DAYS: No Course - Re-evaluation Re-evalutation: 08/23/18 22:07 X-rays revealed no signs of fracture. Discussed use of knee immobilizer, samir, crutches, rest, ice, compression, elevation and follow-up with orthopedics. Vital signs reviewed, nursing notes reviewed. - Vital Signs Vital signs: Temp Pulse Resp BP Pulse Ox 97.5 F 68 16 137/82 H 97 08/23/18 18:05 08/23/18 18:05 08/23/18 18:05 08/23/18 18:05 08/23/18 18:05 Discharge - Discharge Clinical Impression: Ankle injury Qualifiers: Encounter type: initial encounter Laterality: left Qualified Code(s): S99.912A - Unspecified injury of left ankle, initial encounter Knee injury Qualifiers: Encounter type: initial encounter Laterality: left Qualified Code(s): S89.92XA - Unspecified injury of left lower leg, initial encounter Condition: Stable Disposition: HOME, SELF-CARE Instructions: Samir Wrap ([facility]), Knee Immobilizing Splint ([facility]), Sprained Ankle ( [facility]), Sprained Knee ([facility]) Additional Instructions: As we discussed you have been seen and treated in the emergency room for a left knee and ankle injury. You should use knee immobilizer, Samir wrap and crutches until you follow-up with orthopedics. Please return to the emergency room for any other concerning symptoms. Orthopedic phone number will be within this packet. Referrals: CASSIA OJEDA MD [Primary Care Provider] - Follow up as needed YANIRA TURNER MD [ACTIVE STAFF] - Follow up as needed
--- NOTE | 2018-08-23 19:37 | RADIOLOGY REPORT (SQ) ---
EXAM DESCRIPTION: KNEE LEFT 4 VIEW COMPLETED DATE/TIME: 08/23/2018 7:26 pm REASON FOR STUDY: fall COMPARISON: None. NUMBER OF VIEWS: Four views. TECHNIQUE: AP, lateral, and both oblique radiographic images acquired of the left knee. LIMITATIONS: None. FINDINGS: MINERALIZATION: Normal. BONES: No acute fracture or dislocation. No worrisome bone lesions. JOINT: No effusion. SOFT TISSUES: No soft tissue swelling. No radio-opaque foreign body. OTHER: No other significant finding. IMPRESSION: NEGATIVE STUDY OF THE LEFT KNEE. NO RADIOGRAPHIC EVIDENCE OF ACUTE INJURY. TECHNICAL DOCUMENTATION: JOB ID: [id number] [employer]- All Rights Reserved Reading location - IP/workstation name: [email or web address]
--- NOTE | 2018-08-23 19:37 | RADIOLOGY REPORT (SQ) ---
EXAM DESCRIPTION: ANKLE LEFT COMPLETE COMPLETED DATE/TIME: 08/23/2018 7:26 pm REASON FOR STUDY: fall COMPARISON: None. NUMBER OF VIEWS: Three views. TECHNIQUE: AP, lateral, and oblique radiographic images acquired of the left ankle. LIMITATIONS: None. FINDINGS: MINERALIZATION: Normal. BONES: No acute fracture or dislocation. No worrisome bone lesions. JOINTS: No effusions. SOFT TISSUES: No soft tissue swelling. No foreign body. OTHER: No other significant finding. IMPRESSION: NEGATIVE STUDY OF THE LEFT ANKLE. NO RADIOGRAPHIC EVIDENCE OF ACUTE INJURY. TECHNICAL DOCUMENTATION: JOB ID: [id number] [employer]- All Rights Reserved Reading location - IP/workstation name: [email or web address]
[2018-08-23] MEDS ORDERED: HYDROCODONE/ACETAMINOPHEN 5-325 MG (6 TAB/ER DISP) PO PRN (19:46)
[2018-08-23 19:59] VITALS: BP 135/71
== END 2018-08-23 20:08 | disposition home or self-care (01) ==
LOC: ER 17:38
DX: S99.912A Unspecified injury of left ankle, initial encounter (principal); S89.92XA Unspecified injury of left lower leg, initial encounter; W18.30XA Fall on same level, unspecified, initial encounter; Y92.008 Other place in unspecified non-institutional (private) residence as the place of occurrence of the external cause; I10 Essential (primary) hypertension; Z98.51 Tubal ligation status
CPT/HCPCS: 99283; 73610; 73564; L1830; J3490

== ENCOUNTER 2020-04-25 18:02 | Emergency (ER) | payer SELFPAY ==
--- NOTE | 2020-04-25 19:00 | ER Document Report ---
ED Extremity Problem, Upper - General Chief Complaint: Elbow Injury Stated Complaint: FALL/LEFT SHOULDER INJURY Time Seen by Provider: 04/25/20 18:54 Primary Care Provider: CASSIA OJEDA MD [ACTIVE STAFF] - Follow up as needed ALEX ANGELA DO [ACTIVE STAFF] - Follow up as needed Information source: Patient Notes: Patient is a 35-year-old female comes emergency room complaint of left elbow pain. Patient states that 2 weeks ago she fell on outstretched arm and she is complaining of left elbow pain. She states she had some shoulder pain originally but that has gone away. Most of her pain is all centered at the elbow. 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 She is to gotten to the point where she has difficulty holding onto anything at this time. The pain and discomfort are both sides of the elbow. Patient only has a history of asthma and hypertension and she admits to smoking. TRAVEL OUTSIDE OF THE [place] IN LAST 30 DAYS: No - HPI Patient complains to provider of: Injury, Pain, Elbow Onset: Other - 2 weeks Recent injury: Yes Where: Home Quality of pain: Achy, Sharp, Throbbing Severity of pain: Moderate Pain Level: 3 Context: Other - Repetitive motions Arm and Shoulder (Left): 1 - Area discomfort Associated symptoms: None Relieved by: Nothing Similar symptoms previously: Yes Recently seen / treated by doctor: No - Related Data Allergies/Adverse Reactions: No Known Allergies Allergy (Verified 08/23/18 17:40) Home Medications: denies Past Medical History - General Information source: Patient - Social History Smoking Status: Current Every Day Smoker Cigarette use (# per day): Yes - Half pack Chew tobacco use (# tins/day): No Smoking Education Provided: Yes Frequency of alcohol use: Occasional Drug Abuse: None Occupation: Home health Lives with: Family Family History: Reviewed & Not Pertinent, CAD, DM, Hypertension Patient has homicidal ideation: No - Past Medical History Cardiac Medical History: Reports: Hx Hypertension Pulmonary Medical History: Reports: Hx Asthma Renal/ Medical History: Denies: Hx Peritoneal Dialysis Past Surgical History: Reports: Hx Section - x2, Hx Tubal Ligation - Immunizations Immunizations up to date: Yes Hx Diphtheria, Pertussis, Tetanus Vaccination: Yes Hx Pneumococcal Vaccination: 05/07/14 Review of Systems - Review of Systems Constitutional: No symptoms reported EENT: No symptoms reported Cardiovascular: No symptoms reported Respiratory: No symptoms reported Gastrointestinal: No symptoms reported Genitourinary: No symptoms reported Female Genitourinary: No symptoms reported Musculoskeletal: See HPI, Joint pain, Joint swelling Skin: No symptoms reported Hematologic/Lymphatic: No symptoms reported Neurological/Psychological: No symptoms reported -: Yes All other systems reviewed and negative Physical Exam - Vital signs Vitals: Temp Pulse Resp BP Pulse Ox 99 F 88 18 146/89 H 95 04/25/20 18:15 04/25/20 18:15 04/25/20 18:15 04/25/20 18:15 04/25/20 18:15 Interpretation: Hypertensive - Notes Notes: PHYSICAL EXAMINATION: GENERAL: Well-appearing, well-nourished and in no acute distress. HEAD: Atraumatic, normocephalic. NECK: Normal range of motion, supple without lymphadenopathy LUNGS: Breath sounds clear to auscultation bilaterally and equal. No wheezes rales or rhonchi. HEART: Regular rate and rhythm without murmurs Musculoskeletal: Examination patient's her concern is her left elbow. Palpation of the elbow at both the medial and lateral epicondyles show moderate tenderness to palpation those areas. Patient has flexion extension and rotation at the elbow however she has increased discomfort. There is some mild swelling and edema noted at the lateral side. 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 She is left-handed by nature. There is no erythema or warmth noticed associated with this area. No sign of infection is noticed. NEUROLOGICAL: Slightly went to visit all my other 1 did call me raises still having Normal speech, normal gait. Normal sensory, motor exams PSYCH: Normal mood, normal affect. SKIN: Warm, Dry, normal turgor, no rashes or lesions noted. Course - Re-evaluation Re-evalutation: 04/25/20 20:06 Patient is left-handed uses that arm for repetitive motions. Believe she has an epicondylitis we will treat her with some steroids at this time and ice packs. Placed in a sling and have her follow-up with orthopedist. - Vital Signs Vital signs: Temp Pulse Resp BP Pulse Ox 98.3 F 80 16 137/81 H 100 04/25/20 20:56 04/25/20 20:56 04/25/20 20:56 04/25/20 20:56 04/25/20 20:56 Procedures - Immobilization Left Elbow Time completed: 20:07 Pre-Proc Neuro Vasc Exam: Normal Immobilizer type: Sling Performed by: RN Post-Proc Neuro Vasc Exam: Normal Alignment checked and good: Yes Discharge - Discharge Clinical Impression: Epicondylitis syndrome of elbow Condition: Stable Disposition: HOME, SELF-CARE Instructions: Sling as Treatment ([facility]), Tennis Elbow (Lateral Epicondylitis) ([facility]) Additional Instructions: Since you are left-handed and do home health care and repetitive motions with that left hand and wrist it appears that she got epicondylitis which is also called tennis elbow. This is from overuse. As well you are tender on the sides were we are pushing and why it hurts to lift and hold things in your hand. This point the #1 thing for healing this is rest second thing is steroids or anti- inflammatories. We are going to go ahead and try the steroids because that would be the quickest. Which he should always have that you may need to see an orthopedic doctor and have injections into the area if it does not get better with the steroid taper. He can ice the area 3 times a day and when you get home from work. The more you let it rest the quicker it will heal. Should you have any concerns or problems before you see the orthopedist you return to ER for reevaluation. Prescriptions: Methylprednisolone [Medrol Dosepack (4 mg/Tab) 21 Tab/Dosepak] 4 mg PO ASDIR PRN #21 tab.ds.[id number] PRN Reason: Referrals: CASSIA OJEDA MD [ACTIVE STAFF] - Follow up as needed ALEX ANGELA DO [ACTIVE STAFF] - Follow up as needed
--- NOTE | 2020-04-25 19:28 | RADIOLOGY REPORT (SQ) ---
EXAM DESCRIPTION: ELBOW LEFT AP/LATERAL IMAGES COMPLETED DATE/TIME: 04/25/2020 7:15 pm REASON FOR STUDY: pain COMPARISON: None. NUMBER OF VIEWS: Two views. TECHNIQUE: AP and lateral radiographic images acquired of the left elbow. LIMITATIONS: None. FINDINGS: MINERALIZATION: Normal. BONES: No acute fracture or dislocation. No worrisome bone lesions. JOINT: No effusion. SOFT TISSUES: No soft tissue swelling. No foreign body. OTHER: No other significant finding. IMPRESSION: NEGATIVE STUDY OF THE LEFT ELBOW. NO RADIOGRAPHIC EVIDENCE OF ACUTE INJURY. TECHNICAL DOCUMENTATION: JOB ID: [id number] 2010 [employer]- All Rights Reserved Reading location - IP/workstation name: [email or web address]
--- NOTE | 2020-04-25 19:28 | RADIOLOGY REPORT (SQ) ---
EXAM DESCRIPTION: WRIST LEFT 3 VIEWS IMAGES COMPLETED DATE/TIME: 04/25/2020 7:14 pm REASON FOR STUDY: pain COMPARISON: None. EXAM PARAMETERS: NUMBER OF VIEWS: Three views. TECHNIQUE: AP, lateral and oblique radiographic images acquired of the left wrist. LIMITATIONS: None. FINDINGS: MINERALIZATION: Normal. BONES: No acute fracture or dislocation. No worrisome bone lesions. JOINTS: No effusion. SOFT TISSUES: No significant soft tissue swelling. No radiopaque foreign body. OTHER: No other significant finding. IMPRESSION: NO FRACTURE. TECHNICAL DOCUMENTATION: JOB ID: [id number] [place]-72 2010 [employer]- All Rights Reserved Reading location - IP/workstation name: [employer]
[2020-04-25] MEDS ORDERED: DEXAMETHASONE SOD PHOS INJ 10 MG/1 ML VIAL IM ONE (20:00)
[2020-04-25 20:59] VITALS: BP 137/81
== END 2020-04-25 21:18 | disposition home or self-care (01) ==
LOC: ER 18:02
DX: M77.12 Lateral epicondylitis, left elbow (principal); M25.522 Pain in left elbow; W19.XXXA Unspecified fall, initial encounter; Y92.009 Unspecified place in unspecified non-institutional (private) residence as the place of occurrence of the external cause; F17.210 Nicotine dependence, cigarettes, uncomplicated; I10 Essential (primary) hypertension; J45.909 Unspecified asthma, uncomplicated
CPT/HCPCS: 99283; 96372; 73070; 73110; J1100

== ENCOUNTER 2020-05-24 15:45 | Emergency (ER) | payer SELFPAY | END 2020-05-24 15:47 | disposition left against medical advice (07) | LOC: ER 15:45 | DX: Z53.21 Procedure and treatment not carried out due to patient leaving prior to being seen by health care provider (principal) ==

== ENCOUNTER 2020-05-24 20:06 | Emergency (ER) | payer SELFPAY ==
[2020-05-24] MEDS ORDERED: IBUPROFEN 600 MG TABLET PO ONE (20:27)
[2020-05-24] MEDS ORDERED: HYDROCODONE/ACETAMINOPHEN 5-325 MG TABLET PO ONE (21:37)
--- NOTE | 2020-05-24 22:17 | ER Document Report ---
HPI - HPI Patient complains to provider of: left fifth finger injury Time Seen by Provider: 05/24/20 20:24 Pain Level: 5 Context: 35-year-old female with past medical history significant for asthma presents to the emergency room complaining of pain to her left fifth finger after getting it caught in a car door. No history of previous trauma or injury to her finger. Did not take any medications prior to arrival. Patient is right-handed. She denies . Associated Symptoms: None Exacerbated by: Movement Relieved by: Denies Similar symptoms previously: No Recently seen / treated by doctor: No - ROS Systems Reviewed and Negative: Yes All other systems reviewed and negative - NEURO Neurology: DENIES: Weakness - REPRODUCTIVE Reproductive: DENIES: : - MUSCULOSKELETAL Musculoskeletal: REPORTS: Extremity pain - DERM Skin Color: Normal Skin Problems: None Past Medical History - General Information source: Patient - Social History Smoking Status: Current Every Day Smoker Frequency of alcohol use: Occasional Drug Abuse: None Family History: Reviewed & Not Pertinent, CAD, DM, Hypertension Patient has homicidal ideation: No - Past Medical History Cardiac Medical History: Reports: Hx Hypertension Pulmonary Medical History: Reports: Hx Asthma Renal/ Medical History: Denies: Hx Peritoneal Dialysis Past Surgical History: Reports: Hx Section - x2, Hx Tubal Ligation - Immunizations Immunizations up to date: Yes Hx Diphtheria, Pertussis, Tetanus Vaccination: Yes Hx Pneumococcal Vaccination: 05/07/14 Vertical Provider Document - CONSTITUTIONAL Agree With Documented VS: Yes Exam Limitations: No Limitations General Appearance: Moderate Distress - INFECTION CONTROL TRAVEL OUTSIDE OF THE [place] IN LAST 30 DAYS: No - HEENT HEENT: Atraumatic, Normocephalic - NECK Neck: Normal Inspection, Supple, Thyroid Normal - RESPIRATORY Respiratory: Breath Sounds Normal, No Respiratory Distress, Chest Non-Tender - CARDIOVASCULAR Cardiovascular: No Murmur, Tachycardia - MUSCULOSKELETAL/EXTREMETIES Musculoskeletal/Extremeties: Tender - Tenderness on palpation to the left MIP joint as well as the base of the left fifth finger. There is ecchymosis and swelling on the dorsal aspect of the left fifth finger. Painful range of motion with flexion and extension. - NEURO Level of Consciousness: Awake, Alert, Appropriate Motor/Sensory: No Motor Deficit, No Sensory Deficit Notes: Positive left radial pulse. Capillary refill less than 3 seconds. - DERM Integumentary: Warm, Dry, No Rash Course - Re-evaluation Re-evalutation: 05/24/20 22:10 She is resting comfortably with decreased pain. Reviewed x-ray results with patient. Finger splint and kraig taping applied by nursing staff as documented. E force was reviewed okay for prescription. Rest, ice, elevate left hand. Outpatient follow-up with orthopedics as discussed. On-call physician was provided. Patient was given strict return to the emergency room guidelines. Return for any new or worsening symptoms. All questions were answered. Patient verbalized understanding and agrees with plan of care. - Vital Signs Vital signs: Temp Pulse Resp BP Pulse Ox 98.4 F 108 H 20 141/91 H 97 05/24/20 20:16 05/24/20 20:16 05/24/20 20:16 05/24/20 20:16 05/24/20 20:16 - Diagnostic Test Radiology reviewed: Reports reviewed Procedures - Immobilization Left 5th digit Time completed: 22:11 Pre-Proc Neuro Vasc Exam: Normal Immobilizer type: Finger splint (Static), Other - Kraig tape left fourth and fifth fingers. Performed by: RN Post-Proc Neuro Vasc Exam: Normal Alignment checked and good: Yes Discharge - Discharge Clinical Impression: Fracture of middle phalanx of left little finger Qualifiers: Encounter type: initial encounter Fracture type: closed Fracture alignment: displaced Qualified Code(s): S62.627A - Displaced fracture of middle phalanx of left little finger, initial encounter for closed fracture Condition: Stable Disposition: HOME, SELF-CARE Instructions: Kraig Taping (fingers) ([facility]), Fractured Finger ([facility]) Additional Instructions: Call orthopedics for an outpatient follow-up appointment. Take medication as prescribed. Rest ice and elevate left hand. Return to the emergency room for any new or worsening symptoms. Prescriptions: Hydrocodone/Acetaminophen [Karval 5-325 mg Tablet] 1 tab PO Q6H PRN #12 tablet PRN Reason: For Pain Referrals: JEFFREY MUIR MD [Primary Care Provider] - Follow up as needed VICKEY BAUM MD [ACTIVE STAFF] - Follow up tomorrow (Call tomorrow to schedule an outpatient follow-up appointment.)
[2020-05-24 22:54] VITALS: BP 155/73
== END 2020-05-24 22:20 | disposition home or self-care (01) ==
LOC: ER 20:06
PROC: 2W3KX1Z Immobilization of Left Finger using Splint (ICD-10-PCS; principal; 2020-05-24)
DX: S62.627A Displaced fracture of middle phalanx of left little finger, initial encounter for closed fracture (principal); M79.645 Pain in left finger(s); W23.0XXA Caught, crushed, jammed, or pinched between moving objects, initial encounter; F17.200 Nicotine dependence, unspecified, uncomplicated; I10 Essential (primary) hypertension; J45.909 Unspecified asthma, uncomplicated
CPT/HCPCS: 99284

== ENCOUNTER 2020-06-05 01:19 | Emergency (ER) | payer SELFPAY ==
[2020-06-05 01:30] VITALS: BP 149/86
[2020-06-05] MEDS ORDERED: ACETAMINOPHEN 325 MG TABLET PO ONE (02:53)
== END 2020-06-05 04:20 | disposition left against medical advice (07) ==
LOC: ER 01:19
DX: Z53.21 Procedure and treatment not carried out due to patient leaving prior to being seen by health care provider (principal)

== ENCOUNTER 2020-06-06 05:55 | Emergency (ER) | payer SELFPAY ==
[2020-06-06] MEDS ORDERED: HYDROCODONE/ACETAMINOPHEN 5-325 MG TABLET PO ONE (08:50)
[2020-06-06] MEDS ORDERED: LIDOCAINE 4%/TETRACAINE 0.5%/EPI 0.18% 5 ML TOPICAL SOLN TOP ONE (08:50)
[2020-06-06] MEDS ORDERED: LIDOCAINE 1% INJ-PF (10 MG/ML) 30 ML SDV INJ ONE (08:56)
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
[2020-06-06 09:33] VITALS: BP 148/86
== END 2020-06-06 09:32 | disposition home or self-care (01) ==
LOC: ER 05:55
DX: S01.511A Laceration without foreign body of lip, initial encounter (principal); W50.0XXA Accidental hit or strike by another person, initial encounter; F17.200 Nicotine dependence, unspecified, uncomplicated; I10 Essential (primary) hypertension; J45.909 Unspecified asthma, uncomplicated
CPT/HCPCS: 99283; 12011; J3490 ×2

== ENCOUNTER 2020-07-22 01:08 | Emergency (ER) | payer MEDICAID ==
--- NOTE | 2020-07-22 01:41 | ER Document Report ---
ED Medical Screen (RME) - General Chief Complaint: Abdominal Pain Stated Complaint: ABDOMINAL AND RIGHT SIDE PAIN Time Seen by Provider: 07/22/20 01:38 Primary Care Provider: ROBERT URBANO MD [Primary Care Provider] - Follow up as needed Mode of Arrival: Ambulatory Information source: Patient Notes: Patient is a 35-year-old -[place] female with right lower quadrant pain has been getting worse for the past 2-1/2 weeks. No fevers or chills. No nausea or vomiting. Patient admits to having lots of constipation in the past. General exam: Nontoxic Cardiac regular rate and rhythm Pulmonary clear to auscultation abdomen: Tenderness to deep palpation right lower quadrant. No guarding or rebound. I have greeted and performed a rapid initial assessment of this patient. A comprehensive ED assessment and evaluation of the patient, analysis of test results and completion of the medical decision making process will be conducted by additional ED providers. TRAVEL OUTSIDE OF THE [place] IN LAST 30 DAYS: No - Related Data Allergies/Adverse Reactions: No Known Allergies Allergy (Verified 06/05/20 02:48) Past Medical History - Past Medical History Cardiac Medical History: Reports: Hx Hypertension Pulmonary Medical History: Reports: Hx Asthma Renal/ Medical History: Denies: Hx Peritoneal Dialysis Past Surgical History: Reports: Hx Section - x2, Hx Tubal Ligation - Immunizations Immunizations up to date: Yes Hx Diphtheria, Pertussis, Tetanus Vaccination: Yes Physical Exam - Vital signs Vitals: Temp Pulse Resp BP Pulse Ox 98.2 F 78 17 136/80 H 97 07/22/20 01:16 07/22/20 01:16 07/22/20 01:16 07/22/20 01:16 07/22/20 01:16 Course - Vital Signs Vital signs: Temp Pulse Resp BP Pulse Ox 98.2 F 78 17 136/80 H 97 07/22/20 01:16 07/22/20 01:16 07/22/20 01:16 07/22/20 01:16 07/22/20 01:16 Doctor's Discharge - Discharge Referrals: ROBERT URBANO MD [Primary Care Provider] - Follow up as needed
[2020-07-22] MEDS ORDERED: ACETAMINOPHEN 325 MG TABLET PO ONE (03:51)
--- NOTE | 2020-07-22 04:05 | RADIOLOGY REPORT (SQ) ---
Abdomen x-ray single view on 07/22/2020 at 3:41 AM CLINICAL INDICATION: Right lower quadrant pain, constipation COMPARISON: None FINDINGS: Clips from tubal ligation are noted in the pelvis. Bowel gas pattern is unremarkable. No increased stool to suggest significant constipation is noted. No abnormal calcification or mass effect is noted. No bony abnormality is noted. IMPRESSION: Nonspecific abdomen.
[2020-07-22 04:42] LABS: APPEARANCE,URINE SLIGHTLY-CLOUDY; BILIRUBIN,URINE NEGATIVE (NEGATIVE); COLOR,URINE STRAW; GLUCOSE, URINE NEGATIVE (NEGATIVE); KETONES,URINE NEGATIVE (NEGATIVE); PROTEIN,URINE NEGATIVE (NEGATIVE); URINE SPECIFIC GRAVITY 1.005; UROBILINOGEN,URINE NEGATIVE mg/dL (<2.0)
[2020-07-22 06:09] LABS: ABSOLUTE EOSINOPHILS # (AUTO) 0.1 10^3/uL (0.0-0.6); ABSOLUTE LYMPHOCYTES (AUTO) 3.3 10^3/uL (0.5-4.7); ABSOLUTE MONOCYTES (AUTO) 0.4 10^3/uL (0.1-1.4); ABSOLUTE NEUT (AUTO) 2.3 10^3/uL (1.7-8.2); BASOPHILS % (AUTO) 0.6 % (0-2); EOSINOPHILS % (AUTO) 1.6 % (0-6); HEMATOCRIT 36.9 % (36.0-47.0); HEMOGLOBIN 12.9 g/dL (12.0-15.5); LYMPHOCYTES % (AUTO) 53.2 % (13-45); MEAN CORPUSCULAR HEMOGLOBIN 35.7 pg (27.0-33.4); MEAN CORPUSCULAR VOLUME 102 fl (80-97); MONOCYTES % (AUTO) 6.4 % (3-13); PLATELET COUNT 258 10^3/uL (150-450); RED BLOOD COUNT 3.62 10^6/uL (3.72-5.28); RED CELL DISTRIBUTION WIDTH 14.9 % (11.5-14.0); SEGMENTED NEUTROPHILS % (AUTO) 38.2 % (42-78); TOTAL CELLS COUNTED % (AUTO) 100 %; WHITE BLOOD COUNT 6.1 10^3/uL (4.0-10.5)
[2020-07-22 06:28] LABS: ALKALINE PHOSPHATASE 78 U/L (38-126); ANION GAP 10 (5-19); ASPARTATE AMINO TRANSFERASE 38 U/L (14-36); BILIRUBIN,DIRECT 0.2 mg/dL (0.0-0.4); BILIRUBIN,TOTAL 0.2 mg/dL (0.2-1.3); BLOOD UREA NITROGEN 6 mg/dL (7-20); CARBON DIOXIDE 21 mmol/L (22-30); CHLORIDE 109 mmol/L (98-107); GLUCOSE 81 mg/dL (75-110); POTASSIUM 4.4 mmol/L (3.6-5.0); TOTAL PROTEIN 6.6 g/dL (6.3-8.2)
[2020-07-22] MEDS ORDERED: NORMAL SALINE 1000 ML 1,000 ML IV ONE (07:13)
--- NOTE | 2020-07-22 09:25 | RADIOLOGY REPORT (SQ) ---
EXAM DESCRIPTION: U/S NON OB PEL LTD W/DOPPLER IMAGES COMPLETED DATE/TIME: 07/22/2020 9:15 am REASON FOR STUDY: rlq and pelvic pain/ tubes tied COMPARISON: None. TECHNIQUE: Dynamic and static grayscale images acquired of the pelvis via transabdominal approach an d recorded on PACS. Additional selected color Doppler and spectral images recorded. LIMITATIONS: None. FINDINGS: UTERUS: Normal in size pain contour measuring 13 x 5.5 x 4.2 cm. No focal lesions. ENDOMETRIAL STRIPE: Endometrial stripe is visualized measuring 5 mm. CERVIX: Unremarkable measuring 3.3 cm. No nabothian cyst. RIGHT OVARY AND DOPPLER: Normal size measuring 3.2 x 2.1 x 1.7 cm. No worrisome masses. Normal arteri al vascular flow without evidence for torsion. LEFT OVARY AND DOPPLER: Normal size measuring 3.0 x 2.4 x 2.0 cm. No worrisome masses. Normal arteria l vascular flow without evidence for torsion. FREE FLUID: None noted. OTHER: No other significant finding. IMPRESSION: NORMAL PELVIC ULTRASOUND BY TRANSABDOMINAL TECHNIQUE. TECHNICAL DOCUMENTATION: JOB ID: [id number] 2010 [employer]- All Rights Reserved Rev-02/21 Reading location - IP/workstation name: [email or web address]
--- NOTE | 2020-07-22 09:27 | RADIOLOGY REPORT (SQ) ---
EXAM DESCRIPTION: U/S ABDOMEN COMPLETE W/DOPPLER IMAGES COMPLETED DATE/TIME: 07/22/2020 9:15 am REASON FOR STUDY: RUQ pain/rlq pain/pelvic pain/tubes tied COMPARISON: None. TECHNIQUE: Dynamic and static grayscale images acquired of the abdomen and recorded on PACS. Additio nal selected color Doppler and spectral images recorded. Note: Study does not meet criteria for complete doppler/duplex scan LIMITATIONS: None. FINDINGS: PANCREAS: No masses. Visualized pancreatic duct normal caliber. LIVER: Enlarged measuring 19.8 cm. Increased echogenicity with decreased visualization of the portal triads. LIVER VASCULATURE: Normal directional flow of the main portal vein and hepatic veins. GALLBLADDER: No stones. Normal wall thickness. No pericholecystic fluid. ULTRASOUND-DETECTED DAVIS'S SIGN: Negative. INTRAHEPATIC DUCTS AND COMMON DUCT: CBD and intrahepatic ducts normal caliber. No filling defects. INFERIOR VENA CAVA: Normal flow. AORTA: No aneurysm. RIGHT KIDNEY: Normal size measuring 11.2 cm. Normal echogenicity. No solid or suspicious masses. No hydronephrosis. No calcifications. LEFT KIDNEY: Normal size measuring 12.3 cm. Normal echogenicity. No solid or suspicious masses. No hydronephrosis. Few scattered echogenic foci, possibly punctate stones. SPLEEN: Normal size measuring 9.5 cm. Limited evaluation. No focal lesions identified. PERITONEAL AND PLEURAL SPACES: No ascites or effusions. OTHER: No other significant finding. IMPRESSION: 1. Hepatomegaly and hepatic steatosis. 2. Possible punctate nonobstructing left renal stones. TECHNICAL DOCUMENTATION: JOB ID: [id number] 2010 [employer]- All Rights Reserved Reading location - IP/workstation name: [email or web address]
--- NOTE | 2020-07-22 10:19 | RADIOLOGY REPORT (SQ) ---
EXAM DESCRIPTION: CT ABD/PELVIS WITH IV ORAL IMAGES COMPLETED DATE/TIME: 07/22/2020 10:04 am REASON FOR STUDY: abd pain-ruq/rlq/pelvic COMPARISON: None. TECHNIQUE: CT scan of the abdomen and pelvis performed using helical scanning technique with dynamic intravenous contrast injection. Patient was given oral contrast. Images reviewed with lung, soft ti ssue, and bone windows. Reconstructed coronal and sagittal MPR images reviewed. Delayed images for ev aluation of the urinary system also acquired. All images stored on PACS. All CT scanners at this facility use dose modulation, iterative reconstruction, and/or weight based d osing when appropriate to reduce radiation dose to as low as reasonably achievable (ALARA). [facility]: Dose Right [facility]: CareDose [facility]: Dose Right [facility]: Teradose 4D [facility]: Xangati CONTRAST TYPE AND DOSE: contrast/concentration: Isovue 350.00 mmol/ml; Total Contrast Delivered: 100 .0 ml; Total Saline Delivered: 71.9 ml RENAL FUNCTION: Creatinine 0.78 RADIATION DOSE: CT Rad equipment meets quality standard of care and radiation dose reduction techniq ues were employed. CTDIvol: 17.6 - 20.5 mGy. DLP: 2032 mGy-cm.. LIMITATIONS: None. FINDINGS: LOWER CHEST: Minimal dependent ground-glass attenuation, likely hypoventilatory change. LIVER: Hepatic steatosis. No focal lesions. No intrahepatic ductal dilation. SPLEEN: Normal size. No focal lesions. PANCREAS: No masses. No significant calcifications. No adjacent inflammation or peripancreatic fluid collections. Pancreatic duct not dilated. GALLBLADDER: No identified stones by CT criteria. No inflammatory changes to suggest cholecystitis. ADRENAL GLANDS: No significant masses or asymmetry. RIGHT KIDNEY AND URETER: No solid masses. No significant calcifications. No hydronephrosis or hyd roureter. LEFT KIDNEY AND URETER: No solid masses. No significant calcifications. No hydronephrosis or hydr oureter. AORTA AND VESSELS: No aneurysm. No dissection. Renal arteries, SMA, celiac without stenosis. RETROPERITONEUM: No retroperitoneal adenopathy, hemorrhage or masses. BOWEL AND PERITONEAL CAVITY: No masses or inflammatory changes. No free fluid or peritoneal masses. APPENDIX: Normal. PELVIS: Incompletely distended urinary bladder. Small amount of fluid within the endometrial canal. No free fluid or pelvic adenopathy. ABDOMINAL WALL: Obesity. No hernias or masses. BONES: No acute bony abnormality. No suspicious lytic or blastic osseous lesions. OTHER: No other significant finding. IMPRESSION: 1. Hepatic steatosis. 2. No other evidence of acute intra-abdominal/pelvic process. TECHNICAL DOCUMENTATION: JOB ID: [id number] Quality ID # [id number]: Final reports with documentation of one or more dose reduction techniques (e.g., Au tomated exposure control, adjustment of the mA and/or kV according to patient size, use of iterative reconstruction technique) 2010 [employer]- All Rights Reserved Reading location - IP/workstation name: [email or web address]
[2020-07-22] MEDS ORDERED: KETOROLAC TROMETHAMINE INJ/PF 30 MG/1 ML SDV IV ONE (11:21)
--- NOTE | 2020-07-22 11:54 | ER Document Report ---
Entered by MAYURI AMIN SCRIBE 07/22/20 0656 Acting as scribe for:CAITLYN ATKINSON MD ED GI/ - General Chief Complaint: Abdominal Pain Stated Complaint: ABDOMINAL AND RIGHT SIDE PAIN Time Seen by Provider: 07/22/20 01:38 Primary Care Provider: ROBERT URBANO MD [Primary Care Provider] - Follow up as needed Mode of Arrival: Ambulatory Information source: Patient Notes: This 35 year old female patient presents to the ED today for evaluation of RLQ abdominal pain for the past x2 weeks. Patient states that the pain was mild initially, but got progressively worse, especially with movement and cough. She also notes right-sided back pain. She mentions irregular menstrual cycles for the past x3 months. Denies any nausea/vomiting, urinary symptoms including hematuria, bloody stools, vaginal discharge, , fever, chills, or sore throat. TRAVEL OUTSIDE OF THE [place] IN LAST 30 DAYS: No - Related Data Allergies/Adverse Reactions: No Known Allergies Allergy (Verified 07/22/20 01:50) Home Medications: ALBUTEROL Past Medical History - General Information source: Patient, [facility] Records - Social History Smoking Status: Current Every Day Smoker Smoking Education Provided: No Frequency of alcohol use: None Drug Abuse: None Lives with: Spouse/Significant other Family History: Reviewed & Not Pertinent, CAD, DM, Hypertension Patient has suicidal ideation: No Patient has homicidal ideation: No - Past Medical History Cardiac Medical History: Reports: Hx Hypertension Pulmonary Medical History: Reports: Hx Asthma Past Surgical History: Reports: Hx Section - x2, Hx Tubal Ligation - Immunizations Immunizations up to date: Yes Hx Diphtheria, Pertussis, Tetanus Vaccination: Yes Hx Pneumococcal Vaccination: 05/07/14 Review of Systems - Review of Systems Constitutional: See HPI. denies: Chills, Fever EENT: See HPI. denies: Throat pain Cardiovascular: No symptoms reported Respiratory: No symptoms reported Gastrointestinal: See HPI, Abdominal pain. denies: Diarrhea, Nausea, Vomiting, Blood streaked bowels Genitourinary: See HPI. denies: Burning, Dysuria, Frequency, Hematuria Female Genitourinary: See HPI, Irregular period. denies: , Vaginal discharge Musculoskeletal: See HPI Skin: No symptoms reported Hematologic/Lymphatic: No symptoms reported Neurological/Psychological: No symptoms reported -: Yes All other systems reviewed and negative Physical Exam - Vital signs Vitals: Temp Pulse Resp BP Pulse Ox 98.2 F 78 17 136/80 H 97 07/22/20 01:16 07/22/20 01:16 07/22/20 01:16 07/22/20 01:16 07/22/20 01:16 Interpretation: Normal - General General appearance: Alert In distress: None - HEENT Head: Normocephalic, Atraumatic Eyes: Normal Pupils: PERRL Tympanic membrane: Normal. No: Bulging, Injected Pharynx: Normal. No: Erythema Neck: Normal, Supple - Respiratory Respiratory status: No respiratory distress Chest status: Nontender Breath sounds: Normal Chest palpation: Normal - Cardiovascular Rhythm: Regular Heart sounds: Normal auscultation, S1 appreciated, S2 appreciated Murmur: No Friction rub: No Gallop: None auscultated - Abdominal Inspection: Normal Distension: No distension Bowel sounds: Normal Tenderness: Tender - Right upper and lower quadrant tenderness to palpation, Guarding. No: Rebound Organomegaly: No organomegaly - Back Back: Normal, Nontender - Extremities General upper extremity: Normal inspection General lower extremity: Normal inspection. No: Edema - Neurological Neuro grossly intact: Yes Orientation: AAOx4 Belén Coma Scale Eye Opening: Spontaneous Belén Coma Scale Verbal: Oriented Voca Coma Scale Motor: Obeys Commands Belén Coma Scale Total: 15 - Psychological Associated symptoms: Normal affect, Normal mood - Skin Skin Temperature: Warm Skin Moisture: Dry Skin Color: Normal Course - Re-evaluation Re-evalutation: 07/22/20 11:48 Patient resting comfortably though states she still has some residual pain in her right abdomen.. - Vital Signs Vital signs: Temp Pulse Resp BP Pulse Ox 98.2 F 78 17 144/87 H 97 07/22/20 01:16 07/22/20 01:16 07/22/20 01:16 07/22/20 06:50 07/22/20 01:16 07/22/20 11:49 Vital signs stable. Patient is nontoxic and not showing any signs of an acute surgical abdomen or obstruction or infection. - Laboratory Result Diagrams: 07/22/20 05:57 07/22/20 05:57 Laboratory results interpreted by me: 07/22/20 07/22/20 05:57 05:57 RBC 3.62 L MCV 102 H MCH 35.7 H RDW 14.9 H Lymph % (Auto) 53.2 H Seg Neutrophils % 38.2 L Chloride 109 H Carbon Dioxide 21 L BUN 6 L AST 38 H 07/22/20 11:49 Laboratories show no significant chemical imbalance or laboratory aberrations. - Diagnostic Test Radiology reviewed: Reports reviewed Radiology results interpreted by me: 07/22/20 10:35 Abdomen/Pelvis CT 07/22/20 00:00 IMPRESSION: 1. Hepatic steatosis. 2. No other evidence of acute intra-abdominal/pelvic process. KUB X-Ray 07/22/20 01:39 IMPRESSION: Nonspecific abdomen. Abdomen Ultrasound 07/22/20 07:03 IMPRESSION: 1. Hepatomegaly and hepatic steatosis. 2. Possible punctate nonobstructing left renal stones. Pelvis Ultrasound 07/22/20 07:03 IMPRESSION: NORMAL PELVIC ULTRASOUND BY TRANSABDOMINAL TECHNIQUE. 07/22/20 11:50 Plain film x-ray KUB shows nonspecific abdomen with no acute process. Patient had an ultrasound of her pelvis which showed normal ultrasound without any acute problems. Abdominal pelvis CT showed hepatosteatosis without any other acute abdominal process pelvic ultrasound shows no acute process. Discharge - Discharge Clinical Impression: Abdominal pain Condition: Stable Disposition: HOME, SELF-CARE Instructions: Abdominal Pain ([facility]) Prescriptions: Dicyclomine HCl [Bentyl 20 mg Tablet] 20 mg PO QID PRN 5 Days #20 tablet PRN Reason: As needed crampy abdominal chuy Referrals: ROBERT URBANO MD [Primary Care Provider] - Follow up as needed I personally performed the services described in the documentation, reviewed and edited the documentation which was dictated to the scribe in my presence, and it accurately records my words and actions.
[2020-07-22 12:11] VITALS: BP 131/76
== END 2020-07-22 12:11 | disposition home or self-care (01) ==
LOC: ER 01:08
DX: R10.9 Unspecified abdominal pain (principal); R10.31 Right lower quadrant pain; M54.9 Dorsalgia, unspecified; Z79.899 Other long term (current) drug therapy; F17.200 Nicotine dependence, unspecified, uncomplicated; I10 Essential (primary) hypertension; J45.909 Unspecified asthma, uncomplicated
CPT/HCPCS: 99285; 96361; 96374; 36415; 84703; 85025; 80053; 81001; 74018; 76700; 76857; 93976; 74177; J1885; J7030

== ENCOUNTER 2020-10-23 19:23 | Emergency (ER) | payer MEDICAID ==
[2020-10-23 19:39] VITALS: BP 147/93
[2020-10-23 20:01] LABS: ABSOLUTE BASOPHILS # (AUTO) 0.1 10^3/uL (0.0-0.2); ABSOLUTE EOSINOPHILS # (AUTO) 0.1 10^3/uL (0.0-0.6); ABSOLUTE LYMPHOCYTES (AUTO) 3.6 10^3/uL (0.5-4.7); BASOPHILS % (AUTO) 0.9 % (0-2); TOTAL CELLS COUNTED % (AUTO) 100 %
[2020-10-23 20:04] LABS: ABSOLUTE MONOCYTES (AUTO) 0.4 10^3/uL (0.1-1.4); ABSOLUTE NEUT (AUTO) 3.5 10^3/uL (1.7-8.2); EOSINOPHILS % (AUTO) 1.1 % (0-6); HEMATOCRIT 41.7 % (36.0-47.0); HEMOGLOBIN 14.4 g/dL (12.0-15.5); LYMPHOCYTES % (AUTO) 46.8 % (13-45); MEAN CORPUSCULAR HEMOGLOBIN 34.5 pg (27.0-33.4); MEAN CORPUSCULAR HGB CONC 34.4 g/dL (32.0-36.0); MEAN CORPUSCULAR VOLUME 100 fl (80-97); MONOCYTES % (AUTO) 5.8 % (3-13); PLATELET COUNT 218 10^3/uL (150-450); RED BLOOD COUNT 4.17 10^6/uL (3.72-5.28); RED CELL DISTRIBUTION WIDTH 15.8 % (11.5-14.0); SEGMENTED NEUTROPHILS % (AUTO) 45.4 % (42-78); WHITE BLOOD COUNT 7.7 10^3/uL (4.0-10.5)
[2020-10-23 20:32] LABS: APPEARANCE,URINE SLIGHTLY-CLOUDY; BILIRUBIN,URINE NEGATIVE (NEGATIVE); COLOR,URINE YELLOW; GLUCOSE, URINE NEGATIVE (NEGATIVE); KETONES,URINE NEGATIVE (NEGATIVE); LEUKOCYTE ESTERASE,URINE NEGATIVE (NEGATIVE); NITRITE,URINE NEGATIVE (NEGATIVE); PROTEIN,URINE NEGATIVE (NEGATIVE); URINE SPECIFIC GRAVITY 1.011
[2020-10-23 20:33] LABS: ALBUMIN 4.7 g/dL (3.5-5.0); ALKALINE PHOSPHATASE 90 U/L (38-126); ANION GAP 11 (5-19); ASPARTATE AMINO TRANSFERASE 53 U/L (14-36); BILIRUBIN,DIRECT 0.4 mg/dL (0.0-0.4); BILIRUBIN,TOTAL 0.4 mg/dL (0.2-1.3); BLOOD UREA NITROGEN 6 mg/dL (7-20); CALCIUM 9.7 mg/dL (8.4-10.2); CARBON DIOXIDE 27 mmol/L (22-30); CHLORIDE 106 mmol/L (98-107); GLUCOSE 111 mg/dL (75-110); POTASSIUM 3.7 mmol/L (3.6-5.0)
--- NOTE | 2020-10-23 22:48 | ER Document Report ---
ED General - General Chief Complaint: Flu Symptoms Stated Complaint: WEAKNESS Primary Care Provider: ROBERT URBANO MD [Primary Care Provider] - Follow up as needed TRAVEL OUTSIDE OF THE [place] IN LAST 30 DAYS: No - HPI Notes: Chief Complaint: flu like symptoms Historian: History obtained from chart HPI: This is a 35yo female that presents to ed via pov w/ c/o of shortness of breath, n/v/d, body aches, pain with deep breath x2 days. pt was exposed to a person who tested positive for covid19 a few days ago. pt has a hx of asthma, HTN, and DM and hasn't taken her medications in aprox 2 weeks due to financial issues. pt reports she has called 911 over the past week and they have administered nebulizers. I did not evaluate the pt. Pt left after being triaged into the ER and before I evaluated her. ROS: Constitutional: no fevers. HEENT: no HENSLEY, sore throat, or vision changes. CV: no chest pain or palpitations. Resp: sob GI: no abdominal pain, or n/v/d. : no dysuria, hematuria, or incont. MSK: body aches Skin: no rashes or itching. Neuro: no seizures, weakness, numbness, or confusion. Hematological: no ecchymosis or easy bleeding. Endocrine: no polyuria/polydipsia, no heat/cold intolerance. Psych: no SI/HI, AH/VH or memory loss. PMHx: Reviewed and agree as charted by RN. PSHx: Reviewed and agree as charted by RN. SOCHx: Reviewed and agree as charted by RN. FHX: No significant familial comorbid conditions directly related to patient complaint Current Medications: Reviewed and agree with the patient medications as charted by the RN. Allergies: Reviewed and agree with the listed allergies as charted by the RN Physical Exam: Vitals: Reviewed in chart as documented by RN. General: Alert and in NAD. Head: Normocephalic; atraumatic Eyes: PERRLA, Conjunctivae clear sclerae non-icteric bilat CV: RRR Resp: respirations even and unlabored, MSK: FROM of all extremities. ambulatory, normal gait Skin: warm, moist, good turgor. no rash/lesions Neuro: Alert and oriented X 4. Psych: No SI/HI or AH/VH. Medical Decision-Making: Medical Decision-making/Differential Diagnosis: Consider various etiologies including but not limited to covid, viral syndrome, strep pharyngitis, viral pharyngitis, other pharyngitis, erick-tonsillar abscess (unlikely), retropharyngeal abscess (unlikely), Acute Suppurative Otitis media, otalgia, upper respiratory infection, viral syndrome, bronchitis, sinusitis, ect Plan- Pt eloped from the ER prior to my evaluation. RN says she had just saw the pt in the room and then she was not there when i arrived. RN says she was alert and oriented, stable vitals, and in NAD. she did not inform staff of her elopement. RN contacted local PD due to pt having an IV still accessed when she eloped. This course of action was discussed with the patient and/or family. They were amenable to this, verbalized understanding, and were without further questions. - Related Data Allergies/Adverse Reactions: No Known Allergies Allergy (Verified 07/22/20 01:50) Home Medications: albuterol Past Medical History - Social History Smoking Status: Current Every Day Smoker Frequency of alcohol use: None Drug Abuse: None Family History: Reviewed & Not Pertinent, CAD, DM, Hypertension Patient has homicidal ideation: No - Past Medical History Cardiac Medical History: Reports: Hx Hypertension Pulmonary Medical History: Reports: Hx Asthma Endocrine Medical History: Reports: Hx Diabetes Mellitus Type 2 Renal/ Medical History: Denies: Hx Peritoneal Dialysis Past Surgical History: Reports: Hx Section - x2, Hx Tubal Ligation - Immunizations Immunizations up to date: Yes Hx Diphtheria, Pertussis, Tetanus Vaccination: Yes Hx Pneumococcal Vaccination: 05/07/14 Physical Exam - Vital signs Vitals: Temp Pulse BP Pulse Ox 98.0 F 75 147/93 H 99 10/23/20 19:38 10/23/20 19:38 10/23/20 19:38 10/23/20 19:38 Course - Vital Signs Vital signs: Temp Pulse Resp BP Pulse Ox 98.0 F 75 147/93 H 99 10/23/20 19:38 10/23/20 19:38 10/23/20 19:38 10/23/20 19:38 - Laboratory Results Result Diagrams: 10/23/20 19:52 10/23/20 19:52 Laboratory Results Interpreted: 10/23/20 10/23/20 10/23/20 19:52 19:52 20:11 MCV 100 H MCH 34.5 H RDW 15.8 H Lymph % (Auto) 46.8 H BUN 6 L Glucose 111 H AST 53 H Urine Urobilinogen 2.0 H Critical Laboratory Results Reviewed: No Critical Results - Radiology Results Critical Radiology Results Reviewed: No Critical Results Discharge - Discharge Clinical Impression: SOB (shortness of breath) Condition: Stable Disposition: ELOPED Referrals: ROBERT RUBANO MD [Primary Care Provider] - Follow up as needed
== END 2020-10-23 22:05 | disposition left against medical advice (07) ==
LOC: ER 19:23
DX: R06.02 Shortness of breath (principal); R53.1 Weakness; Z20.822 Contact with and (suspected) exposure to COVID-19; F17.200 Nicotine dependence, unspecified, uncomplicated; I10 Essential (primary) hypertension; E11.9 Type 2 diabetes mellitus without complications; Z98.51 Tubal ligation status
CPT/HCPCS: 36415; 80053; 81001; 85025; 99281